=== PATIENT | male | born 1990 | race African-American/Black ===

== ENCOUNTER 2018-10-10 18:30 | Inpatient (IN) | payer MEDICAID ==
[~2018-10-10] VITALS: Ht 172.7 cm; Wt 47.2 kg
[~2018-10-10 18:30] MED LIST: DOLU50TA PO; EMTR1TAB16 PO; NAPR-985 PO; OLAN7.5T5 PO; SULF1TAB31 PO
[2018-10-10] MEDS ORDERED: ONDANSETRON 4 MG INJ IV STA (19:02)
[2018-10-10] MEDS ORDERED: LACTATED RINGER'S 1,000 ML IV STA (19:02)
[2018-10-10] MEDS ORDERED: BELLADONNA/PHENOBARBITAL TAB PO STA (19:02)
[2018-10-10] MEDS ORDERED: LIDOCAINE/MYLANTA 40 ML BTL PO STA (19:02)
[2018-10-10] MEDS ORDERED: SOD CHLORIDE 0.9% 1,000 ML IV STA (19:02)
[2018-10-10] MEDS ORDERED: HYDROmorphONE 1 MG/ML SYG IV STA (19:02)
[2018-10-10] MEDS ORDERED: AZITHROMYCIN 500MG/NS (PMX) 250 ML IVPB ONE (20:00)
[2018-10-10] MEDS ORDERED: CEFTRIAXONE 1 GM/50 ML (PMX) 50 ML IVPB ONE (20:00)
[2018-10-10] MEDS ORDERED: LORAZEPAM 2 MG INJ IV ONE (21:00)
[2018-10-10] MEDS ORDERED: TRIMETHOPRIM/SULFAMETHOX (DS) TAB PO SCH (21:00)
[2018-10-10] MEDS ORDERED: NACL 0.9% 3 ML SYG IV SCH (22:00)
[2018-10-10] MEDS ORDERED: VANCOMYCIN IV PER PHARMACY XX SCH (22:00)
[2018-10-10] MEDS ORDERED: VANCOMYCIN 1 GM in 250 ML IVPB ONE (22:30)
[2018-10-10] MEDS: SOD CHLORIDE 0.9% 1,000 ML IV SCH (22:32)
[2018-10-10] MEDS: PIPER-TAZO 3.375 GM IV (PMX) 100 ML IVPB SCH (22:33)
[2018-10-11] MEDS: PIPER-TAZO 3.375 GM IV (PMX) 100 ML IVPB SCH ×5 (01:40→23:51)
[2018-10-11] MEDS: HYDROmorphONE 0.5 MG/0.5 ML SYG IV PRN (01:40)
[2018-10-11 01:42] VITALS: BP 118/80; PULSE 77; RESP 18
[2018-10-11 02:02] VITALS: Ht 172.7 cm; Wt 47.2 kg
[2018-10-11 04:27] VITALS: BP 120/94; PULSE 84; RESP 16
[2018-10-11 08:02] VITALS: BP 111/66; RESP 18
[2018-10-11] MEDS: ACETAMINOPHEN 325 MG TAB PO PRN ×2 (08:18→16:01)
[2018-10-11] MEDS ORDERED: OLANZAPINE 2.5 MG TAB PO SCH (09:00)
[2018-10-11] MEDS ORDERED: TRIMETHOPRIM/SULFAMETHOX (DS) TAB PO SCH (09:00)
[2018-10-11] MEDS: ENOXAPARIN 40 MG/0.4 ML SYG SC SCH (09:00)
[2018-10-11] MEDS ORDERED: DOLUTEGRAVIR SODIUM 50 MG TABLET PO SCH (09:00)
[2018-10-11] MEDS ORDERED: EMTRICITABINE/TENOFOV ALAFENAM 1 EACH TABLET PO SCH (09:00)
[2018-10-11] MEDS ORDERED: AZITHROMYCIN 600 MG TAB PO SCH ×2 (09:00→23:00)
[2018-10-11] MEDS ORDERED: VANCOMYCIN 500 MG (PMX) 100 ML IVPB SCH (10:30)
[2018-10-11 11:00] VITALS: BP 114/66; PULSE 81; RESP 19
[2018-10-11] MEDS: SOD CHLORIDE 0.9% 1,000 ML IV SCH ×2 (13:17→22:44)
[2018-10-11] MEDS: TRIMETHOPRIM/SULFAMETHOXAZOLE 15 ML in DEXTROSE 5% 500 ML IVPB SCH ×2 (13:17→21:48)
[2018-10-11] MEDS: FLUCONAZOLE 400 MG/NS (PMX) 200 ML IVPB SCH (15:56)
[2018-10-11 20:00] VITALS: BP 107/66; PULSE 84; RESP 20
[2018-10-11] MEDS: OLANZAPINE 5 MG TAB PO SCH (21:11)
[2018-10-11] MEDS ORDERED: VANCOMYCIN 1 GM 250 ML IVPB SCH (22:30)
[2018-10-11] MEDS: VANCOMYCIN 1 GM 250 ML IVPB SCH (23:51)
[2018-10-12] VITALS: BP 121/68; PULSE 87; RESP 20
[2018-10-12] MEDS: HYDROmorphONE 1 MG/ML SYG IV PRN ×3 (02:56→20:35)
[2018-10-12 05:00] VITALS: BP 111/64; PULSE 78; RESP 20
[2018-10-12] MEDS: TRIMETHOPRIM/SULFAMETHOXAZOLE 15 ML in DEXTROSE 5% 500 ML IVPB SCH ×3 (05:12→21:37)
[2018-10-12] MEDS: PIPER-TAZO 3.375 GM IV (PMX) 100 ML IVPB SCH ×3 (05:13→17:39)
[2018-10-12 07:00] VITALS: BP 104/63; PULSE 86; RESP 18
[2018-10-12] MEDS: ENOXAPARIN 40 MG/0.4 ML SYG SC SCH (09:00)
[2018-10-12] MEDS: VANCOMYCIN 1 GM 250 ML IVPB SCH (09:48)
[2018-10-12 11:54] VITALS: BP 114/66; PULSE 81; RESP 18
[2018-10-12 15:10] VITALS: BP 110/64; PULSE 68; RESP 19
[2018-10-12] MEDS: PANTOPRAZOLE (EC) 40 MG TAB PO SCH (15:41)
[2018-10-12] MEDS: FLUCONAZOLE 400 MG/NS (PMX) 200 ML IVPB SCH (15:41)
[2018-10-12] MEDS: VANCOMYCIN 500 MG (PMX) 100 ML IVPB SCH (18:24)
[2018-10-12] MEDS: ONDANSETRON 4 MG INJ IV PRN (18:29)
[2018-10-12 20:00] VITALS: BP 122/78; PULSE 80; RESP 20
[2018-10-12] MEDS: OLANZAPINE 5 MG TAB PO SCH (20:34)
[2018-10-12] MEDS ORDERED: SODIUM CL 0.9% FOR INHALATION 5 ML NEBU INH ONE (21:30)
[2018-10-12] MEDS ORDERED: NACL 3% FOR INHALATION 15 ML NEBU NEB ONE (21:30)
[2018-10-12 21:54] LABS: S PNEUMONAIE AG DETECT SOURCE SERUM; S PNEUMONAIE AG DETECTION NOT DETECTED
[2018-10-12] MEDS: SOD CHLORIDE 0.9% 1,000 ML IV SCH (23:44)
[2018-10-13] VITALS (7 sets, daily range): BP systolic 107–128; BP diastolic 59–83; PULSE 74–89; RESP 18–20
[2018-10-13] MEDS: PIPER-TAZO 3.375 GM IV (PMX) 100 ML IVPB SCH ×4 (00:13→17:28)
[2018-10-13] MEDS: VANCOMYCIN 500 MG (PMX) 100 ML IVPB SCH ×3 (02:10→17:29)
[2018-10-13] MEDS: HYDROmorphONE 1 MG/ML SYG IV PRN (04:23)
[2018-10-13] MEDS ORDERED: SODIUM CL 0.9% FOR INHALATION 5 ML NEBU INH ONE (05:00)
[2018-10-13] MEDS: TRIMETHOPRIM/SULFAMETHOXAZOLE 15 ML in DEXTROSE 5% 500 ML IVPB SCH ×3 (05:18→22:34)
[2018-10-13] MEDS: SOD CHLORIDE 0.9% 1,000 ML IV SCH ×3 (05:18→13:14)
[2018-10-13] MEDS: PANTOPRAZOLE (EC) 40 MG TAB PO SCH (06:28)
[2018-10-13] MEDS: ENOXAPARIN 40 MG/0.4 ML SYG SC SCH (08:43)
[2018-10-13] MEDS: FLUCONAZOLE 400 MG/NS (PMX) 200 ML IVPB SCH (13:14)
[2018-10-13] MEDS: HYDROmorphONE 0.5 MG/0.5 ML SYG IV PRN ×2 (13:22→21:12)
[2018-10-13] MEDS: OLANZAPINE 5 MG TAB PO SCH (21:10)
[2018-10-13] MEDS ORDERED: VANCOMYCIN 750 MG (PMX) 250 ML IVPB SCH (22:00)
[2018-10-14] MEDS: ACETAMINOPHEN 325 MG TAB PO PRN
[2018-10-14] MEDS: HYDROmorphONE 1 MG/ML SYG IV PRN ×2 (00:09→12:27)
[2018-10-14 04:03] VITALS: BP 101/61; PULSE 71; RESP 18
[2018-10-14] MEDS: TRIMETHOPRIM/SULFAMETHOXAZOLE 15 ML in DEXTROSE 5% 500 ML IVPB SCH ×3 (04:56→20:57)
[2018-10-14] MEDS: PANTOPRAZOLE (EC) 40 MG TAB PO SCH (05:10)
[2018-10-14] MEDS: PIPER-TAZO 3.375 GM IV (PMX) 100 ML IVPB SCH ×4 (05:10→18:21)
[2018-10-14] MEDS ORDERED: FLUCYTOSINE (10 MG/ML PO SYG) PO SCH (07:30)
[2018-10-14 08:21] VITALS: BP 124/75; PULSE 111; RESP 18
[2018-10-14] MEDS: ENOXAPARIN 40 MG/0.4 ML SYG SC SCH (09:00)
[2018-10-14] MEDS: DIPHENHYDRAMINE 25 MG CAP PO SCH (09:25)
[2018-10-14] MEDS: ACETAMINOPHEN 325 MG TAB PO SCH (09:25)
[2018-10-14] MEDS: AMPHOTERICIN B LIPOSOME 300 MG in DEXTROSE 5% 300 ML IVPB SCH (10:20)
[2018-10-14 11:31] VITALS: BP 103/58; PULSE 80; RESP 18
[2018-10-14] MEDS ORDERED: FLUCYTOSINE 250 MG CAPSULE PO SCH (13:30)
[2018-10-14] MEDS: FLUCYTOSINE 250 MG CAPSULE PO SCH ×2 (14:33→20:57)
[2018-10-14] MEDS: HYDROmorphONE 0.5 MG/0.5 ML SYG IV PRN (18:22)
[2018-10-14 20:02] VITALS: BP 130/82; PULSE 87; RESP 18
[2018-10-14] MEDS: OLANZAPINE 5 MG TAB PO SCH (20:56)
[2018-10-15 00:10] VITALS: BP 109/70; PULSE 93; RESP 18
[2018-10-15] MEDS: FLUCYTOSINE 250 MG CAPSULE PO SCH ×2 (00:59→06:22)
[2018-10-15] MEDS: HYDROmorphONE 0.5 MG/0.5 ML SYG IV PRN ×4 (00:59→21:32)
[2018-10-15] MEDS: PIPER-TAZO 3.375 GM IV (PMX) 100 ML IVPB SCH ×4 (00:59→18:13)
[2018-10-15 03:56] VITALS: BP 116/71; PULSE 93; RESP 18
[2018-10-15] MEDS: TRIMETHOPRIM/SULFAMETHOXAZOLE 15 ML in DEXTROSE 5% 500 ML IVPB SCH ×3 (05:35→21:32)
[2018-10-15] MEDS: PANTOPRAZOLE (EC) 40 MG TAB PO SCH (06:22)
[2018-10-15 08:16] VITALS: BP 117/61; PULSE 97; RESP 20
[2018-10-15] MEDS: ACETAMINOPHEN 325 MG TAB PO SCH (08:55)
[2018-10-15] MEDS: DIPHENHYDRAMINE 25 MG CAP PO SCH (08:56)
[2018-10-15] MEDS: ENOXAPARIN 40 MG/0.4 ML SYG SC SCH (09:00)
[2018-10-15] MEDS: AMPHOTERICIN B LIPOSOME 300 MG in DEXTROSE 5% 300 ML IVPB SCH (09:40)
[2018-10-15 11:19] VITALS: BP 116/59; PULSE 71; RESP 20
[2018-10-15 16:42] VITALS: BP 124/60; PULSE 109; RESP 19
[2018-10-15] MEDS ORDERED: DOCUSATE SODIUM 100 MG CAP PO PRN (18:15)
[2018-10-15 20:00] VITALS: BP 124/72; PULSE 103; RESP 18
[2018-10-15] MEDS ORDERED: DOCUSATE SODIUM 100 MG CAP PO SCH (21:00)
[2018-10-15] MEDS: OLANZAPINE 5 MG TAB PO SCH (21:30)
[2018-10-15] MEDS: ACETAMINOPHEN 325 MG TAB PO PRN (21:31)
[2018-10-16] VITALS: BP 128/76; PULSE 98; RESP 19
[2018-10-16] MEDS: PIPER-TAZO 3.375 GM IV (PMX) 100 ML IVPB SCH ×5 (00:26→22:19)
[2018-10-16 04:00] VITALS: BP 115/80; PULSE 68; RESP 20
[2018-10-16] MEDS: PANTOPRAZOLE (EC) 40 MG TAB PO SCH (05:26)
[2018-10-16] MEDS: TRIMETHOPRIM/SULFAMETHOXAZOLE 15 ML in DEXTROSE 5% 500 ML IVPB SCH ×3 (05:26→22:14)
[2018-10-16 07:57] VITALS: BP 121/72; PULSE 114
[2018-10-16] MEDS: ONDANSETRON 4 MG INJ IV PRN (08:14)
[2018-10-16] MEDS: HYDROmorphONE 1 MG/ML SYG IV PRN ×4 (08:15→22:23)
[2018-10-16] MEDS: ENOXAPARIN 40 MG/0.4 ML SYG SC SCH (08:15)
[2018-10-16] MEDS: DIPHENHYDRAMINE 25 MG CAP PO SCH (09:55)
[2018-10-16] MEDS: ACETAMINOPHEN 325 MG TAB PO SCH (09:55)
[2018-10-16] MEDS: FLUCONAZOLE 200 MG TAB PO SCH (09:56)
[2018-10-16] MEDS: ACETAMINOPHEN 325 MG TAB PO PRN (10:25)
[2018-10-16 11:41] VITALS: BP 110/61; PULSE 86; RESP 20
[2018-10-16 15:34] VITALS: BP 108/62; PULSE 78; RESP 18
[2018-10-16] MEDS ORDERED: POTASSIUM CHLORIDE 20 MEQ POWDER FOR ORAL SOLN ONE (18:53)
[2018-10-16] MEDS ORDERED: POTASSIUM CHLORIDE 20 MEQ POWDER FOR ORAL SOLN PO ONE (19:00)
[2018-10-16 19:08] VITALS: BP 121/68; PULSE 69; RESP 16
[2018-10-16 19:35] LABS: PNEUMOCYSTIS JIROVECCI DFA NOT DETECTED
[2018-10-16] MEDS: OLANZAPINE 5 MG TAB PO SCH (20:48)
[2018-10-16] MEDS ORDERED: SOD CHLORIDE 0.9% 500 ML IV ONE (22:00)
[2018-10-17 00:25] VITALS: BP 110/64; PULSE 89; RESP 18
[2018-10-17] MEDS: HYDROmorphONE 1 MG/ML SYG IV PRN ×5 (02:27→21:35)
[2018-10-17 04:25] VITALS: BP 105/71; PULSE 71; RESP 18
[2018-10-17] MEDS: TRIMETHOPRIM/SULFAMETHOXAZOLE 15 ML in DEXTROSE 5% 500 ML IVPB SCH ×3 (06:03→22:42)
[2018-10-17] MEDS: PIPER-TAZO 3.375 GM IV (PMX) 100 ML IVPB SCH ×2 (06:03→11:37)
[2018-10-17] MEDS: PANTOPRAZOLE (EC) 40 MG TAB PO SCH (06:03)
[2018-10-17 07:42] VITALS: BP 126/75; PULSE 201; RESP 19
[2018-10-17] MEDS: ONDANSETRON 4 MG INJ IV PRN (07:48)
[2018-10-17] MEDS: ENOXAPARIN 40 MG/0.4 ML SYG SC SCH (09:00)
[2018-10-17] MEDS: FLUCONAZOLE 200 MG TAB PO SCH (09:04)
[2018-10-17] MEDS ORDERED: IBUPROFEN 600 MG TAB PO PRN (10:30)
[2018-10-17 11:20] VITALS: BP 131/75; PULSE 109; RESP 19
[2018-10-17] MEDS: DRONABINOL 2.5 MG CAP PO SCH ×2 (11:37→21:29)
[2018-10-17] MEDS: CALCIUM CARBONATE 500 MG CHEW TAB PO SCH ×2 (13:31→18:01)
[2018-10-17 15:30] VITALS: BP 109/65; PULSE 86; RESP 19
[2018-10-17] MEDS ORDERED: AMPHOTERICIN B LIPOSOME 300 MG in DEXTROSE 5% 300 ML IVPB SCH (16:00)
[2018-10-17] MEDS: ACETAMINOPHEN 325 MG TAB PO PRN (18:02)
[2018-10-17] MEDS ORDERED: DIPHENHYDRAMINE 25 MG CAP PO PRN (19:00)
[2018-10-17 20:00] VITALS: BP 96/51; PULSE 63; RESP 18
[2018-10-17] MEDS: OLANZAPINE 5 MG TAB PO SCH (21:29)
[2018-10-18] VITALS: BP 98/64; PULSE 64; RESP 19
[2018-10-18 04:00] VITALS: BP 119/74; PULSE 74; RESP 20
[2018-10-18] MEDS: HYDROmorphONE 1 MG/ML SYG IV PRN (04:06)
[2018-10-18] MEDS: TRIMETHOPRIM/SULFAMETHOXAZOLE 15 ML in DEXTROSE 5% 500 ML IVPB SCH ×2 (05:17→13:00)
[2018-10-18] MEDS: PANTOPRAZOLE (EC) 40 MG TAB PO SCH (05:20)
[2018-10-18 07:41] VITALS: BP 117/73; PULSE 88; RESP 19
[2018-10-18] MEDS: ENOXAPARIN 40 MG/0.4 ML SYG SC SCH (09:00)
[2018-10-18] MEDS: CALCIUM CARBONATE 500 MG CHEW TAB PO SCH ×2 (09:03→12:37)
[2018-10-18] MEDS: FLUCONAZOLE 200 MG TAB PO SCH (09:03)
[2018-10-18] MEDS: DRONABINOL 2.5 MG CAP PO SCH (09:06)
[2018-10-18] MEDS: ONDANSETRON 4 MG INJ IV PRN (09:06)
[2018-10-18] MEDS ORDERED: CEPASTAT LOZENGE MT PRN (10:00)
[2018-10-18] MEDS ORDERED: ALBUTEROL/IPRATROPIUM (NEB) 3 ML AMP HHN PRN (10:00)
[2018-10-18] MEDS ORDERED: GUAIFENESIN 20 MG/ML 5ML CUP PO PRN (10:00)
[2018-10-18 12:29] VITALS: BP 105/62; PULSE 85; RESP 17
[2018-10-19] MEDS ORDERED: FLUCONAZOLE 200 MG TAB PO SCH (09:00)
== END 2018-10-18 15:17 | disposition left against medical advice (07) | DRG 97 ==
LOC: E/R 18:30 → 6WM 20:01 → CANRESERV 20:47 → EDBEDREQSVC 21:47 → CANBEDREQ 23:58 → 6WM 10-11 01:08
PROVIDERS: ADMIT Family Medicine; ATTEND Hospitalist
PROC: 009U3ZX Drainage of Spinal Canal, Percutaneous Approach, Diagnostic (ICD-10-PCS; principal; 2018-10-14)
PROC: B01BYZZ Fluoroscopy of Spinal Cord using Other Contrast (ICD-10-PCS; 2018-10-14)
DX: B45.1 Cerebral cryptococcosis (principal); E43 Unspecified severe protein-calorie malnutrition; J18.8 Other pneumonia, unspecified organism; B20 Human immunodeficiency virus [HIV] disease; Z68.1 Body mass index [BMI] 19.9 or less, adult; C46.52 Kaposi's sarcoma of left lung; B49 Unspecified mycosis; D63.8 Anemia in other chronic diseases classified elsewhere; F31.9 Bipolar disorder, unspecified; F17.200 Nicotine dependence, unspecified, uncomplicated; K21.9 Gastro-esophageal reflux disease without esophagitis; R74.0 Nonspecific elevation of levels of transaminase and lactic acid dehydrogenase [LDH]; R11.2 Nausea with vomiting, unspecified; Z91.14 Patient's other noncompliance with medication regimen; Z59.0 Homelessness
CPT/HCPCS: 36415; 36600; 70450; 71045; 71250; 74176; 76705; 80048; 80053; 80202; 80307; 81003; 82040; 82042; 82306; 82728; 82784; 82803; 82945; 83036; 83540; 83605; 83615; 83625; 83690; 83735; 84100; 84145; 84157; 84166; 84443; 85025; 85610; 85651; 85730; 86140; 86360; 86403; 86480; 86580; 86592; 86635; 86641; 86701; 86703; 86704; 86706; 86709; 86738; 86777; 86780; 86803; 87015; 87070; 87081; 87102; 87116; 87210; 87281; 87340; 87385; 87536; 87556; 89051; 89220; 93005; 93306; 94640; 94664; 96361; 96374; 96375; J0289; J0456; J0696; J1170; J1450; J1650; J2060; J2405; J2543; J3370; J7030; J7040; J7060; J7120

== ENCOUNTER 2018-10-18 15:59 | Inpatient (IN) | payer MEDICAID ==
[~2018-10-18] VITALS: Ht 172.7 cm; Wt 48.0 kg
[~2018-10-18 15:59] MED LIST changes: +AZIT500T9 PO; +DOCU-144 PO; +ETHA400T24 PO; +FLUC200T PO; +HYDR-3601 PO; +HYDR-4011 PO; +NYST1000 PO; +OLAN2.5T28 PO; +ONDA4TAB13 PO; +RIFA150C22 PO; +ZOLP5TAB PO
[2018-10-18] MEDS ORDERED: ACETAMINOPHEN 325 MG TAB PO ONE (17:00)
[2018-10-18 17:15] VITALS: BP 124/78; RESP 18
[2018-10-18 17:37] VITALS: Ht 172.7 cm; Wt 48.0 kg
[2018-10-18] MEDS ORDERED: ALBUTEROL/IPRATROPIUM (NEB) 3 ML AMP HHN PRN (19:30)
[2018-10-18] MEDS ORDERED: DOCUSATE SODIUM 100 MG CAP PO PRN (19:30)
[2018-10-18] MEDS ORDERED: NACL 0.9% 3 ML SYG IV SCH (19:30)
[2018-10-18] MEDS: ONDANSETRON 4 MG INJ IV PRN (20:38)
[2018-10-18] MEDS: morphine 2 MG INJ IV PRN (20:39)
[2018-10-18 20:56] VITALS: BP 117/73; PULSE 98; RESP 18
[2018-10-18] MEDS ORDERED: ZOLPIDEM 5 MG TAB PO PRN (21:00)
[2018-10-18] MEDS: OLANZAPINE 2.5 MG TAB PO SCH (21:33)
[2018-10-18] MEDS: DRONABINOL 2.5 MG CAP PO SCH (21:33)
[2018-10-18] MEDS: AZITHROMYCIN 600 MG TAB PO SCH (22:48)
[2018-10-18] MEDS: TRIMETHOPRIM/SULFAMETHOXAZOLE 15 ML in DEXTROSE 5% 500 ML IVPB SCH (23:45)
[2018-10-19 00:01] VITALS: BP 124/72; PULSE 95; RESP 19
[2018-10-19] MEDS: AMPHOTERICIN B LIPOSOME 300 MG in DEXTROSE 5% 300 ML IVPB SCH (01:23)
[2018-10-19 04:30] VITALS: BP 114/74; PULSE 110; RESP 19
[2018-10-19] MEDS: ACETAMINOPHEN 325 MG TAB PO PRN ×2 (05:41→13:29)
[2018-10-19] MEDS: TRIMETHOPRIM/SULFAMETHOXAZOLE 15 ML in DEXTROSE 5% 500 ML IVPB SCH ×3 (05:42→22:41)
[2018-10-19] MEDS: morphine 2 MG INJ IV PRN (06:35)
[2018-10-19] MEDS: ONDANSETRON 4 MG INJ IV PRN (06:35)
[2018-10-19 07:49] VITALS: BP 113/62; PULSE 94; RESP 18
[2018-10-19] MEDS: DRONABINOL 2.5 MG CAP PO SCH (09:00)
[2018-10-19] MEDS ORDERED: FLUCONAZOLE 200 MG TAB PO SCH (09:00)
[2018-10-19] MEDS ORDERED: MAGNESIUM SULFATE 2 GM/50 ML 50 ML IVPB ONE (11:00)
[2018-10-19 11:51] VITALS: BP 118/75; PULSE 101; RESP 20
[2018-10-19] MEDS: NICOTINE (14 MG/24 HR) PATCH TRANSDERM SCH (12:30)
[2018-10-19] MEDS: HYDROCODONE/APAP (5/325) TAB PO PRN ×2 (15:32→22:39)
[2018-10-19 15:43] VITALS: BP 122/66; PULSE 112; RESP 20
[2018-10-19] MEDS: FLUCYTOSINE 250 MG CAPSULE PO SCH (18:07)
[2018-10-19 19:25] VITALS: BP 107/65; PULSE 99; RESP 18
[2018-10-19] MEDS: OLANZAPINE 2.5 MG TAB PO SCH (20:05)
[2018-10-19] MEDS: NYSTATIN SUSP 5 ML CUP PO SCH (20:05)
[2018-10-20] VITALS: BP 110/64; PULSE 102; RESP 19
[2018-10-20] MEDS: AMPHOTERICIN B LIPOSOME 300 MG in DEXTROSE 5% 300 ML IVPB SCH ×2 (00:14→23:28)
[2018-10-20] MEDS: FLUCYTOSINE 250 MG CAPSULE PO SCH ×4 (00:15→18:27)
[2018-10-20 04:10] VITALS: BP 112/71; PULSE 94; RESP 18
[2018-10-20] MEDS: HYDROCODONE/APAP (5/325) TAB PO PRN ×2 (05:31→19:52)
[2018-10-20] MEDS: TRIMETHOPRIM/SULFAMETHOXAZOLE 15 ML in DEXTROSE 5% 500 ML IVPB SCH ×2 (05:31→13:01)
[2018-10-20] MEDS: ONDANSETRON 4 MG INJ IV PRN ×3 (05:39→19:51)
[2018-10-20 07:54] VITALS: BP 104/65; PULSE 92; RESP 20
[2018-10-20] MEDS: NYSTATIN SUSP 5 ML CUP PO SCH ×4 (08:21→19:52)
[2018-10-20] MEDS: NICOTINE (14 MG/24 HR) PATCH TRANSDERM SCH (08:21)
[2018-10-20] MEDS: ENOXAPARIN 40 MG/0.4 ML SYG SC SCH (08:25)
[2018-10-20 11:33] VITALS: BP 109/67; PULSE 89; RESP 20
[2018-10-20 15:22] VITALS: BP 102/72; PULSE 105; RESP 20
[2018-10-20 19:21] VITALS: BP 117/72; PULSE 102; RESP 18
[2018-10-20] MEDS: OLANZAPINE 2.5 MG TAB PO SCH (19:52)
[2018-10-21] VITALS: BP 110/65; PULSE 99; RESP 18
[2018-10-21] MEDS: FLUCYTOSINE 250 MG CAPSULE PO SCH ×4 (00:09→20:34)
[2018-10-21 04:05] VITALS: BP 119/75; PULSE 100; RESP 18
[2018-10-21] MEDS: ONDANSETRON 4 MG INJ IV PRN ×3 (04:13→16:19)
[2018-10-21] MEDS: HYDROCODONE/APAP (5/325) TAB PO PRN ×2 (04:13→10:31)
[2018-10-21 07:12] VITALS: BP 107/64; PULSE 103; RESP 17
[2018-10-21] MEDS: NICOTINE (14 MG/24 HR) PATCH TRANSDERM SCH (09:00)
[2018-10-21] MEDS: ENOXAPARIN 40 MG/0.4 ML SYG SC SCH (09:00)
[2018-10-21] MEDS: NYSTATIN SUSP 5 ML CUP PO SCH ×4 (09:09→19:51)
[2018-10-21] MEDS: TRIMETHOPRIM/SULFAMETHOX (DS) TAB PO SCH (09:09)
[2018-10-21 11:29] VITALS: BP 108/64; PULSE 95; RESP 17
[2018-10-21 15:24] VITALS: BP 110/66; PULSE 100; RESP 18
[2018-10-21] MEDS: morphine 2 MG INJ IV PRN (15:31)
[2018-10-21 19:20] VITALS: BP 107/64; PULSE 116; RESP 19
[2018-10-21] MEDS: OLANZAPINE 2.5 MG TAB PO SCH (19:51)
[2018-10-21] MEDS: ACETAMINOPHEN 325 MG TAB PO PRN (20:34)
[2018-10-22] MEDS: ONDANSETRON 4 MG INJ IV PRN ×4 (00:21→17:51)
[2018-10-22] MEDS: AMPHOTERICIN B LIPOSOME 300 MG in DEXTROSE 5% 300 ML IVPB SCH (00:21)
[2018-10-22] MEDS: HYDROCODONE/APAP (5/325) TAB PO PRN ×2 (00:21→09:41)
[2018-10-22] MEDS: FLUCYTOSINE 250 MG CAPSULE PO SCH ×4 (00:22→17:01)
[2018-10-22 00:47] VITALS: BP 105/65; PULSE 95; RESP 18
[2018-10-22 04:55] VITALS: BP 116/67; PULSE 85; RESP 18
[2018-10-22] MEDS: ACETAMINOPHEN 325 MG TAB PO PRN ×2 (04:57→18:54)
[2018-10-22 07:16] VITALS: BP 101/58; PULSE 103; RESP 17
[2018-10-22] MEDS: ENOXAPARIN 40 MG/0.4 ML SYG SC SCH (08:37)
[2018-10-22] MEDS: NICOTINE (14 MG/24 HR) PATCH TRANSDERM SCH (08:37)
[2018-10-22] MEDS: NYSTATIN SUSP 5 ML CUP PO SCH ×4 (09:40→20:26)
[2018-10-22] MEDS: TRIMETHOPRIM/SULFAMETHOX (DS) TAB PO SCH (09:40)
[2018-10-22 11:00] VITALS: BP 98/57; PULSE 130; RESP 19
[2018-10-22 15:00] VITALS: BP 101/56; PULSE 102; RESP 19
[2018-10-22] MEDS: morphine 2 MG INJ IV PRN (17:51)
[2018-10-22] MEDS: OLANZAPINE 2.5 MG TAB PO SCH (20:26)
[2018-10-22 20:31] VITALS: BP 99/58; RESP 19
[2018-10-23] VITALS (7 sets, daily range): BP systolic 85–107; BP diastolic 53–68; PULSE 90–114; RESP 18–19
[2018-10-23] MEDS: AMPHOTERICIN B LIPOSOME 300 MG in DEXTROSE 5% 300 ML IVPB SCH (00:01)
[2018-10-23] MEDS: FLUCYTOSINE 250 MG CAPSULE PO SCH ×4 (01:43→18:00)
[2018-10-23] MEDS: ONDANSETRON 4 MG INJ IV PRN ×3 (06:11→20:35)
[2018-10-23] MEDS: ENOXAPARIN 40 MG/0.4 ML SYG SC SCH (09:00)
[2018-10-23] MEDS: NICOTINE (14 MG/24 HR) PATCH TRANSDERM SCH (09:00)
[2018-10-23] MEDS: SODIUM CHLORIDE 1 GM TAB PO SCH ×3 (09:01→20:35)
[2018-10-23] MEDS: TRIMETHOPRIM/SULFAMETHOX (DS) TAB PO SCH (09:01)
[2018-10-23] MEDS: NYSTATIN SUSP 5 ML CUP PO SCH ×4 (09:02→20:35)
[2018-10-23] MEDS: morphine 2 MG INJ IV PRN (09:17)
[2018-10-23] MEDS ORDERED: CALCIUM CARBONATE 500 MG CHEW TAB PO PRN (14:00)
[2018-10-23] MEDS: OLANZAPINE 2.5 MG TAB PO SCH (20:35)
[2018-10-23] MEDS: ACETAMINOPHEN 325 MG TAB PO PRN (20:44)
[2018-10-23] MEDS ORDERED: morphine 2 MG INJ IV PRN (22:30)
[2018-10-24] MEDS: AMPHOTERICIN B LIPOSOME 300 MG in DEXTROSE 5% 300 ML IVPB SCH (00:40)
[2018-10-24] MEDS: HYDROCODONE/APAP (5/325) TAB PO PRN ×3 (00:44→22:06)
[2018-10-24 03:52] VITALS: BP 105/61; PULSE 90; RESP 19
[2018-10-24] MEDS: FLUCYTOSINE 250 MG CAPSULE PO SCH ×2 (06:00)
[2018-10-24 07:58] VITALS: BP 91/54; PULSE 111; RESP 18
[2018-10-24] MEDS: NYSTATIN SUSP 5 ML CUP PO SCH ×5 (08:50→20:54)
[2018-10-24] MEDS: TRIMETHOPRIM/SULFAMETHOX (DS) TAB PO SCH ×2 (08:50→11:15)
[2018-10-24] MEDS: SODIUM CHLORIDE 1 GM TAB PO SCH ×4 (08:50→20:54)
[2018-10-24] MEDS: ONDANSETRON 4 MG INJ IV PRN ×2 (10:32→20:34)
[2018-10-24 11:20] VITALS: BP 103/64; PULSE 104; RESP 17
[2018-10-24 15:56] VITALS: BP 106/61; PULSE 98; RESP 19
[2018-10-24] MEDS: FLUCONAZOLE 200 MG TAB PO SCH (17:28)
[2018-10-24 19:20] VITALS: BP 114/64; PULSE 119; RESP 20
[2018-10-24] MEDS: OLANZAPINE 2.5 MG TAB PO SCH (20:54)
[2018-10-25] VITALS (7 sets, daily range): BP systolic 92–115; BP diastolic 52–63; PULSE 92–112; RESP 18–20
[2018-10-25] MEDS: FLUCONAZOLE 200 MG TAB PO SCH (09:06)
[2018-10-25] MEDS: SODIUM CHLORIDE 1 GM TAB PO SCH ×3 (09:06→21:06)
[2018-10-25] MEDS: NYSTATIN SUSP 5 ML CUP PO SCH ×4 (09:06→21:05)
[2018-10-25] MEDS: TRIMETHOPRIM/SULFAMETHOX (DS) TAB PO SCH (09:06)
[2018-10-25] MEDS: ONDANSETRON 4 MG INJ IV PRN ×2 (11:43→22:35)
[2018-10-25] MEDS: HYDROCODONE/APAP (5/325) TAB PO PRN (13:55)
[2018-10-25] MEDS: OLANZAPINE 2.5 MG TAB PO SCH (21:06)
[2018-10-25] MEDS: AZITHROMYCIN 600 MG TAB PO SCH (21:06)
[2018-10-26 03:35] VITALS: BP 106/58; PULSE 104; RESP 14
[2018-10-26 07:19] VITALS: BP 107/57; PULSE 99; RESP 18
[2018-10-26] MEDS: ONDANSETRON 4 MG INJ IV PRN (09:40)
[2018-10-26] MEDS: NYSTATIN SUSP 5 ML CUP PO SCH ×4 (10:16→21:19)
[2018-10-26] MEDS: TRIMETHOPRIM/SULFAMETHOX (DS) TAB PO SCH (10:16)
[2018-10-26] MEDS: SODIUM CHLORIDE 1 GM TAB PO SCH ×3 (10:16→21:18)
[2018-10-26] MEDS: FLUCONAZOLE 200 MG TAB PO SCH (10:24)
[2018-10-26 11:31] VITALS: BP 110/57; PULSE 69; RESP 18
[2018-10-26 15:14] VITALS: BP 105/61; PULSE 95; RESP 18
[2018-10-26] MEDS: HYDROCODONE/APAP (5/325) TAB PO PRN ×2 (15:37→21:18)
[2018-10-26 19:35] VITALS: BP 97/64; PULSE 93; RESP 19
[2018-10-26] MEDS: OLANZAPINE 2.5 MG TAB PO SCH (21:18)
[2018-10-27 07:40] VITALS: BP 105/68; PULSE 105; RESP 18
[2018-10-27] MEDS: FLUCONAZOLE 200 MG TAB PO SCH (09:09)
[2018-10-27] MEDS: TRIMETHOPRIM/SULFAMETHOX (DS) TAB PO SCH (09:09)
[2018-10-27] MEDS: SODIUM CHLORIDE 1 GM TAB PO SCH ×3 (09:10→22:29)
[2018-10-27] MEDS: NYSTATIN SUSP 5 ML CUP PO SCH ×4 (09:10→22:29)
[2018-10-27] MEDS: ONDANSETRON 4 MG INJ IV PRN (09:15)
[2018-10-27] MEDS: HYDROCODONE/APAP (5/325) TAB PO PRN ×2 (11:21→22:33)
[2018-10-27 15:13] VITALS: BP 110/58; PULSE 100; RESP 16
[2018-10-27 20:00] VITALS: BP 117/68; PULSE 100; RESP 18
[2018-10-27] MEDS: OLANZAPINE 2.5 MG TAB PO SCH (22:29)
[2018-10-28] VITALS: BP 108/63; PULSE 93; RESP 17
[2018-10-28 04:00] VITALS: BP 98/68; PULSE 80; RESP 17
[2018-10-28 07:13] VITALS: BP 113/65; PULSE 93; RESP 18
[2018-10-28] MEDS ORDERED: MAGNESIUM SULFATE 2 GM/50 ML 50 ML IVPB ONE (08:30)
[2018-10-28] MEDS: SODIUM CHLORIDE 1 GM TAB PO SCH ×3 (08:49→21:16)
[2018-10-28] MEDS: TRIMETHOPRIM/SULFAMETHOX (DS) TAB PO SCH (08:50)
[2018-10-28] MEDS: NYSTATIN SUSP 5 ML CUP PO SCH ×4 (08:50→21:00)
[2018-10-28] MEDS: FLUCONAZOLE 200 MG TAB PO SCH (08:50)
[2018-10-28] MEDS: ONDANSETRON 4 MG INJ IV PRN ×3 (09:12→20:32)
[2018-10-28 11:23] VITALS: BP 102/57; PULSE 91; RESP 18
[2018-10-28 15:08] VITALS: BP 101/63; PULSE 100; RESP 18
[2018-10-28] MEDS: ETHAMBUTOL 400 MG TAB PO SCH (16:58)
[2018-10-28] MEDS: RIFABUTIN 150 MG CAP PO SCH (16:58)
[2018-10-28] MEDS: AZITHROMYCIN 500 MG TAB PO SCH (16:58)
[2018-10-28 19:52] VITALS: BP 100/60; PULSE 102; RESP 20
[2018-10-28] MEDS: OLANZAPINE 2.5 MG TAB PO SCH (21:16)
[2018-10-28] MEDS: HYDROCODONE/APAP (5/325) TAB PO PRN (21:20)
[2018-10-29] VITALS: BP 102/70; PULSE 82; RESP 18
[2018-10-29 04:00] VITALS: BP 99/64; PULSE 92; RESP 17
[2018-10-29 07:14] VITALS: BP 95/54; PULSE 98; RESP 18
[2018-10-29] MEDS: ONDANSETRON 4 MG INJ IV PRN ×2 (08:34→21:18)
[2018-10-29] MEDS: SODIUM CHLORIDE 1 GM TAB PO SCH ×3 (08:37→21:07)
[2018-10-29] MEDS: NYSTATIN SUSP 5 ML CUP PO SCH ×4 (08:37→21:07)
[2018-10-29] MEDS: FLUCONAZOLE 200 MG TAB PO SCH (08:37)
[2018-10-29] MEDS: TRIMETHOPRIM/SULFAMETHOX (DS) TAB PO SCH (08:37)
[2018-10-29 11:09] VITALS: BP 109/66; PULSE 88; RESP 20
[2018-10-29] MEDS: HYDROCODONE/APAP (5/325) TAB PO PRN ×2 (12:32→21:51)
[2018-10-29 15:05] VITALS: BP 101/63; PULSE 79; RESP 20
[2018-10-29 19:20] VITALS: BP 106/69; PULSE 97; RESP 20
[2018-10-29] MEDS: OLANZAPINE 2.5 MG TAB PO SCH (21:08)
[2018-10-30] VITALS: BP 111/64; PULSE 80; RESP 19
[2018-10-30 04:00] VITALS: BP 90/55; PULSE 81
[2018-10-30 07:12] VITALS: BP 111/67; PULSE 98; RESP 18
[2018-10-30] MEDS ORDERED: NA POLYST SULFON 15 GM/60 ML BTL PO ONE (08:00)
[2018-10-30] MEDS: ONDANSETRON 4 MG INJ IV PRN ×2 (08:54→16:11)
[2018-10-30] MEDS: SODIUM CHLORIDE 1 GM TAB PO SCH ×3 (08:56→16:14)
[2018-10-30] MEDS: NYSTATIN SUSP 5 ML CUP PO SCH ×4 (08:57→20:34)
[2018-10-30] MEDS: FLUCONAZOLE 200 MG TAB PO SCH (08:57)
[2018-10-30] MEDS ORDERED: TRIMETHOPRIM/SULFAMETHOX (DS) TAB PO SCH (09:00)
[2018-10-30 11:18] VITALS: BP 101/67; PULSE 94; RESP 18
[2018-10-30 15:10] VITALS: BP 101/64; PULSE 111; RESP 18
[2018-10-30] MEDS: RIFABUTIN 150 MG CAP PO SCH (16:15)
[2018-10-30] MEDS: ETHAMBUTOL 400 MG TAB PO SCH (16:15)
[2018-10-30] MEDS: HYDROCODONE/APAP (5/325) TAB PO PRN ×2 (16:16→22:58)
[2018-10-30] MEDS: AZITHROMYCIN 500 MG TAB PO SCH (16:16)
[2018-10-30 20:00] VITALS: BP 107/70; PULSE 99; RESP 18
[2018-10-30] MEDS: OLANZAPINE 2.5 MG TAB PO SCH (20:34)
[2018-10-31] VITALS: BP 109/68; PULSE 85; RESP 18
[2018-10-31 04:00] VITALS: BP 103/73; PULSE 79; RESP 18
[2018-10-31 07:19] VITALS: BP 106/65; PULSE 94; RESP 18
[2018-10-31] MEDS ORDERED: MAGNESIUM SULFATE 2 GM/50 ML 50 ML IVPB ONE (07:30)
[2018-10-31] MEDS: ONDANSETRON 4 MG INJ IV PRN ×2 (08:34→20:31)
[2018-10-31] MEDS: FLUCONAZOLE 200 MG TAB PO SCH (09:58)
[2018-10-31] MEDS: SODIUM CHLORIDE 1 GM TAB PO SCH ×3 (09:59→20:31)
[2018-10-31] MEDS: NYSTATIN SUSP 5 ML CUP PO SCH ×4 (09:59→20:31)
[2018-10-31] MEDS ORDERED: SOD CHLORIDE 0.9% 250 ML IV* ONE (10:35)
[2018-10-31 11:20] VITALS: BP 102/56; PULSE 96; RESP 19
[2018-10-31] MEDS: HYDROCODONE/APAP (5/325) TAB PO PRN ×2 (14:34→21:52)
[2018-10-31 15:14] VITALS: BP 105/66; PULSE 100; RESP 19
[2018-10-31 19:31] VITALS: BP 117/68; PULSE 104; RESP 18
[2018-10-31] MEDS: OLANZAPINE 2.5 MG TAB PO SCH (20:31)
[2018-11-01] VITALS: BP 103/66; PULSE 85; RESP 19
[2018-11-01 04:10] VITALS: BP 108/68; PULSE 86; RESP 18
[2018-11-01 07:15] VITALS: BP 90/57; PULSE 88; RESP 20
[2018-11-01] MEDS: ONDANSETRON 4 MG INJ IV PRN (08:46)
[2018-11-01] MEDS: NYSTATIN SUSP 5 ML CUP PO SCH ×2 (08:48→12:24)
[2018-11-01] MEDS: FLUCONAZOLE 200 MG TAB PO SCH (08:48)
[2018-11-01] MEDS: SODIUM CHLORIDE 1 GM TAB PO SCH ×2 (08:48→12:24)
[2018-11-01 11:23] VITALS: BP 109/65; PULSE 84; RESP 20
== END 2018-11-01 13:13 | disposition home or self-care (01) | DRG 97 ==
LOC: E/R 15:59 → 6WM 17:06
PROVIDERS: ADMIT Internal Medicine; ATTEND Hospitalist
PROC: 30233N1 Transfusion of Nonautologous Red Blood Cells into Peripheral Vein, Percutaneous Approach (ICD-10-PCS; principal; 2018-10-21)
DX: B45.1 Cerebral cryptococcosis (principal); E43 Unspecified severe protein-calorie malnutrition; J16.8 Pneumonia due to other specified infectious organisms; B20 Human immunodeficiency virus [HIV] disease; Z68.1 Body mass index [BMI] 19.9 or less, adult; R64 Cachexia; N17.9 Acute kidney failure, unspecified; B37.0 Candidal stomatitis; A31.0 Pulmonary mycobacterial infection; E22.2 Syndrome of inappropriate secretion of antidiuretic hormone; R44.0 Auditory hallucinations; K21.9 Gastro-esophageal reflux disease without esophagitis; R74.0 Nonspecific elevation of levels of transaminase and lactic acid dehydrogenase [LDH]; D50.9 Iron deficiency anemia, unspecified; Z59.0 Homelessness; F17.200 Nicotine dependence, unspecified, uncomplicated; F12.90 Cannabis use, unspecified, uncomplicated; F31.9 Bipolar disorder, unspecified; E87.5 Hyperkalemia; E83.42 Hypomagnesemia; T36.7X5A Adverse effect of antifungal antibiotics, systemically used, initial encounter; T37.8X5A Adverse effect of other specified systemic anti-infectives and antiparasitics, initial encounter
CPT/HCPCS: 36430; 76775; 80048; 80076; 81003; 82043; 82533; 83036; 83605; 83735; 83935; 84100; 84145; 84153; 84154; 84155; 84300; 84560; 85014; 85018; 85025; 86850; 86870; 86880; 86885; 86900; 86901; 86920; 87070; 87086; 87556; 97161; J0289; J1650; J2270; J2405; J3475; J7040; J7060; P9016